=== PATIENT | male | born 1980 | race Caucasian/White ===

== ENCOUNTER → 2020-07-02 11:59 | Outpatient (CLI) | payer OTHER, SELFPAY ==
[2020-07-02] MEDS: COVID-19 VACC #1, MRNA(MOD) 100 MCG/0.5 ML VIAL IM (12:09)
== END ==
PROVIDERS: Visit Provider Internal Medicine
DX: Z23 Encounter for immunization (principal)
CPT/HCPCS: 0011A; 91301

== ENCOUNTER → 2020-07-30 11:57 | Outpatient (CLI) | payer OTHER, SELFPAY ==
[2020-07-30] MEDS: COVID-19 VACC #2, MRNA(MOD) 100 MCG/0.5 ML VIAL IM (12:00)
== END ==
PROVIDERS: Visit Provider Internal Medicine
DX: Z23 Encounter for immunization (principal)
CPT/HCPCS: 0012A; 91301

== ENCOUNTER → 2021-02-06 10:38 | Outpatient (CLI) | payer BC, SELFPAY ==
[2021-02-06] MEDS: COVID-19 VACC #3, MRNA(MOD) 50 MCG/0.25 ML VIAL IM (10:41)
== END ==
PROVIDERS: PCP Family Medicine; Referring Provider Internal Medicine; Visit Provider Internal Medicine
DX: Z23 Encounter for immunization (principal)
CPT/HCPCS: 0013A; 91301

== ENCOUNTER → 2021-02-09 08:00 | Outpatient (CLI) | payer BC, SELFPAY ==
[2021-02-09 08:45] LABS: Add Manual Diff / Slide Review NO; Basophils Absolute Auto 0 /uL (0-100); Basophils Percent Auto 0.8 % (0-2); Eosinophils Absolute Auto 200 /uL (0-450); Eosinophils Percent Auto 4.8 % (2-4); Hematocrit 47.2 % (41-53); Hemoglobin 16.8 g/dL (13.5-17.5); Lymphocytes Absolute Auto 1200 /uL (1100-4500); Lymphocytes Percent Auto 24.2 % (25-40); Mean Corpuscular HGB Conc 35.7 % (30-36); Mean Corpuscular Hemoglobin 33.7 PG (26-34); Mean Corpuscular Volume 94.5 fL (80-100); Monocytes Absolute Auto 500 /uL (0-900); Monocytes Percent Auto 9.4 % (3-14); Neutrophils Absolute Auto 2900 /uL (1500-7000); Neutrophils Percent Auto 60.8 % (50-75); Platelet Count 125 X10^3/uL (150-400); Red Blood Cell Count 4.99 X10^6/uL (4.5-5.9); Red Cell Distribution Width 13.1 % (11.6-14.8); White Blood Cell Count 4.8 X10^3/uL (4.5-11.0)
[2021-02-09 09:21] LABS: Alanine Aminotransferase 102 IU/L (<50); Albumin 4.7 g/dL (3.5-5.0); Albumin Globulin Ratio 1.2 (1.0-2.8); Alkaline Phosphatase 64 U/L (38-126); Aspartate Aminotransferase 63 IU/L (17-59); Bilirubin Total 1.3 mg/dL (0.2-1.3); Blood Urea Nitrogen 18 mg/dL (9-20); Calcium 9.5 mg/dL (8.4-10.2); Carbon Dioxide 24 mmol/L (22-32); Chloride 104 mmol/L (98-107); Estimated Glomerular Filt Rate > 60.0 mL/min (>60); Glucose 113 mg/dL (70-100); HDL Cholesterol 37 mg/dL (40-60); Potassium 4.2 mmol/L (3.4-5.1); Sodium 138 mmol/L (137-145); Total Protein 8.7 g/dL (6.3-8.2)
[2021-02-09 09:40] LABS: HEMOLYSIS 31 (0-50)
[2021-02-09 09:50] LABS: Cholesterol 348 mg/dL (140-199); Triglycerides 593 mg/dL (35-150)
[2021-02-09 09:53] LABS: TSH w/ Reflex to FT4 2.56 uIU/mL (0.47-4.68)
== END ==
PROVIDERS: PCP Family Medicine; Referring Provider Family Medicine; Visit Provider Family Medicine
DX: E78.5 Hyperlipidemia, unspecified (principal)
CPT/HCPCS: 80053; 80061; 84443; 85025

== ENCOUNTER → 2024-02-21 08:24 | Outpatient (CLI) | payer BC, SELFPAY ==
[2024-02-21 09:04] LABS: Add Manual Diff / Slide Review NO; Basophils Absolute Auto 0 /uL (0-100); Basophils Percent Auto 0.7 % (0-2); Eosinophils Absolute Auto 300 /uL (0-450); Eosinophils Percent Auto 4.7 % (2-4); Hematocrit 49.6 % (41-53); Hemoglobin 17.6 g/dL (13.5-17.5); Lymphocytes Absolute Auto 1500 /uL (1100-4500); Lymphocytes Percent Auto 27.3 % (25-40); Mean Corpuscular HGB Conc 35.5 % (30-36); Mean Corpuscular Hemoglobin 33.8 PG (26-34); Mean Corpuscular Volume 95.4 fL (80-100); Monocytes Absolute Auto 400 /uL (0-900); Monocytes Percent Auto 7.3 % (3-14); Neutrophils Absolute Auto 3200 /uL (1500-7000); Platelet Count 152 X10^3/uL (150-400); White Blood Cell Count 5.4 X10^3/uL (4.5-11.0)
[2024-02-21 09:27] LABS: Alanine Aminotransferase 98 IU/L (<50); Albumin 4.4 g/dL (3.5-5.0); Albumin Globulin Ratio 1.1 (1.0-2.8); Alkaline Phosphatase 77 U/L (38-126); Aspartate Aminotransferase 67 IU/L (17-59); BUN Creatinine Ratio 11.4 (6-22); Bilirubin Total 1.1 mg/dL (0.2-1.3); Blood Urea Nitrogen 12 mg/dL (9-20); Calcium 9.8 mg/dL (8.4-10.2); Carbon Dioxide 25 mmol/L (22-32); Chloride 104 mmol/L (98-107); Estimated Glomerular Filt Rate > 60 mL/min (>60); Glucose 122 mg/dL (70-100); HDL Cholesterol 39 mg/dL (40-60); HEMOLYSIS < 15 (0-50); Potassium 4.5 mmol/L (3.4-5.1); Sodium 134 mmol/L (137-145); Total Protein 8.4 g/dL (6.3-8.2)
[2024-02-21 09:31] LABS: Creatinine Urine Random 104.33 mg/dL
[2024-02-21 09:50] LABS: Triglycerides 993 mg/dL (35-150)
[2024-02-21 09:51] LABS: Microalbumin Urine Random < 0.6 mg/dL (0-1.6)
[2024-02-21 09:51] LABS: Cholesterol 364 mg/dL (140-199)
[2024-02-21 10:03] LABS: TSH w/ Reflex to FT4 1.89 uIU/mL (0.47-4.68)
[2024-02-22 08:12] LABS: Apolipoprotein B 76 mg/dL (<90)
== END ==
PROVIDERS: PCP Family Medicine; Referring Provider Family Medicine; Visit Provider Family Medicine
DX: R74.8 Abnormal levels of other serum enzymes (principal); E78.5 Hyperlipidemia, unspecified; J30.2 Other seasonal allergic rhinitis
CPT/HCPCS: 36415; 80053; 80061; 82043; 82172; 82570; 84443; 85025

== ENCOUNTER → 2024-05-21 07:12 | Outpatient (CLI) | payer BC, SELFPAY ==
[2024-05-21 08:08] LABS: Hemoglobin A1C% w Est Avg Glu 4.9 % (4.0-6.0)
[2024-05-21 08:26] LABS: Alanine Aminotransferase 70 IU/L (<50); Albumin 4.6 g/dL (3.5-5.0); Albumin Globulin Ratio 1.3 (1.0-2.8); Alkaline Phosphatase 78 U/L (38-126); Aspartate Aminotransferase 59 IU/L (17-59); BUN Creatinine Ratio 13.5 (6-22); Bilirubin Total 1.1 mg/dL (0.2-1.3); Blood Urea Nitrogen 14 mg/dL (9-20); Carbon Dioxide 20 mmol/L (22-32); Chloride 106 mmol/L (98-107); Estimated Glomerular Filt Rate > 60 mL/min (>60); Globulin 3.5 g/dL (1.7-4.1); Glucose 111 mg/dL (70-100); Potassium 4.3 mmol/L (3.4-5.1); Sodium 137 mmol/L (137-145); Total Protein 8.1 g/dL (6.3-8.2)
[2024-05-21 08:28] LABS: Add Manual Diff / Slide Review NO; Basophils Absolute Auto 0 /uL (0-100); Basophils Percent Auto 0.9 % (0-2); Eosinophils Absolute Auto 200 /uL (0-450); Eosinophils Percent Auto 4.5 % (2-4); Hematocrit 44.5 % (41-53); Hemoglobin 16.9 g/dL (13.5-17.5); Lymphocytes Absolute Auto 1600 /uL (1100-4500); Lymphocytes Percent Auto 33.4 % (25-40); Mean Corpuscular HGB Conc 38.1 % (30-36); Mean Corpuscular Hemoglobin 35.5 PG (26-34); Mean Corpuscular Volume 93.1 fL (80-100); Monocytes Absolute Auto 300 /uL (0-900); Monocytes Percent Auto 6.8 % (3-14); Neutrophils Absolute Auto 2600 /uL (1500-7000); Neutrophils Percent Auto 54.4 % (50-75); Platelet Count 165 X10^3/uL (150-400); Red Blood Cell Count 4.78 X10^6/uL (4.5-5.9); White Blood Cell Count 4.9 X10^3/uL (4.5-11.0)
[2024-05-21 08:35] LABS: HEMOLYSIS 124 (0-50)
== END ==
PROVIDERS: PCP Family Medicine; Referring Provider Family Medicine; Visit Provider Family Medicine
DX: E78.5 Hyperlipidemia, unspecified (principal); E78.1 Pure hyperglyceridemia; Z78.9 Other specified health status; D58.2 Other hemoglobinopathies; R73.9 Hyperglycemia, unspecified
CPT/HCPCS: 36415; 80053; 83036; 85025

== ENCOUNTER → 2024-08-18 08:20 | Outpatient (CLI) | payer BC, SELFPAY ==
[2024-08-18 10:18] LABS: Alanine Aminotransferase 71 IU/L (<50); Albumin 4.6 g/dL (3.5-5.0); Albumin Globulin Ratio 1.4 (1.0-2.8); Alkaline Phosphatase 78 U/L (38-126); Aspartate Aminotransferase 56 IU/L (17-59); Bilirubin Total 0.9 mg/dL (0.2-1.3); Bilirubin Unconjugated 0.6 mg/dL (0.0-1.1); Cholesterol 240 mg/dL (140-199); Globulin 3.3 g/dL (1.7-4.1); HDL Cholesterol 46 mg/dL (40-60); HEMOLYSIS < 15 (0-50); LDL Cholesterol Calculated 132 mg/dL (<100); Total Protein 7.9 g/dL (6.3-8.2); Triglycerides 311 mg/dL (35-150)
== END ==
PROVIDERS: PCP Family Medicine; Referring Provider Internal Medicine; Visit Provider Internal Medicine
DX: E78.1 Pure hyperglyceridemia (principal)
CPT/HCPCS: 36415; 80061; 80076